=== PATIENT | female | born 1990 | race Caucasian/White ===

== ENCOUNTER 2016-07-22 14:08 | Inpatient (IN) | payer OTHER ==
[~2016-07-22] VITALS: Ht 165.1 cm; Wt 123.0 kg
[~2016-07-22 14:08] MED LIST: ABILIFY10 MG PO; ABILIFY15 MG PO; ACETAMINOPHEN-1 EAC1 PO; ADDERAL; ADDERALL XR 2020 MG PO; ADDERALL10 MG PO; ADDERALL20 MG PO; ALPRAZOLAM1 MG PO; AMBIEN10 MG PO; AMPHETAMINE SAL20 MG PO; CARBAMAZEPINE200 M1 PO; CELEXA10 MG PO; CLONAZEPAM1 MG PO; CLONAZEPAM2 MG PO; COGENTIN0.5 MG PO; DEXTROAMP-AMPHE20 MG PO; FENTANYL1 EAC1 TD; GABAPENTIN600 MG PO; GABAPENTIN800 MG PO; HALDOL10 MG PO; HALDOL5 MG PO; KLONOPIN0.5 M1 PO; KLONOPIN2 MG PO; LAMICTAL25 MG; LITHIUM CARBON300 MG PO; METHOCARBAMOL500 MG PO; MORPHINE SULFAT15 M1 PO; MOTRIN600 MG PO; MOTRIN800 MG PO; Motrin PO; NAPROSYN500 MG PO; NEURONTIN300 MG PO; NEURONTIN600 MG PO; NEURONTIN800 MG PO; NEXIUM20 MG PO; NEXIUM40 MG PO; NOHOMEMEDS; PRISTIQ100 MG PO; PRISTIQ50 MG PO; QUETIAPINE FUM100 MG PO; REMERON30 M2 PO; REMERON45 MG PO; RESTORIL15 MG PO; RISPERDAL0.5 MG PO; RISPERDAL1 MG PO; ROBAXIN500 MG PO; TEMAZEPAM15 MG PO; TOPAMAX25 MG PO; TOPIRAMATE25 MG PO; TRIPLE ANTIB28.35 GM TP; Tums PO; VOLTAREN75 MG PO; XANAX2 MG PO; ZOLPIDEM TARTRA10 MG PO; ZOLPIDEM TARTRAT5 MG PO
[2016-07-22 16:59] LABS: HEMATOCRIT 39.3 % (36.0-46.0); MCH 30.3 PG (29.0-34.0); MCHC 35.1 G/DL (30.0-36.0); MCV 86.4 FL (83-99); MEAN PLAT.VOLUME 9.9 uM^3 (9.5-12.4); PLATELET COUNT 205 K/uL (156-360); RBC DIS.WIDTH-CV 12.4 % (11.8-14.6); RBC DIS.WIDTH-SD 38.3 % (39-53); RED BLOOD COUNT 4.55 M/uL (3.80-5.20); WHITE BLOOD COUNT 9.8 K/uL (4.1-10.2)
[2016-07-22 17:15] LABS: CHLORIDE 107 mEq/L (99-109); POTASSIUM 4.4 mEq/L (3.7-5.4); SODIUM 140 mEq/L (136-147)
[2016-07-22 17:17] LABS: GLUCOSE 88 mg/dL (70-99)
[2016-07-22 17:18] LABS: ANION GAP 8 MEQ/L (2-14)
[2016-07-22 17:20] LABS: GFR ESTIMATE (CALCULATED) > 59 mL/min/; SERUM ETHYL ALCOHOL < 10 mg/dL
[2016-07-22 17:21] LABS: UREA NITROGEN (BUN) 10 mg/dL (9-23)
[2016-07-22] MEDS ORDERED: UNISOM50 MG PO (18:18)
[2016-07-22] MEDS ORDERED: TYLENOL EXTRA500 MG PO (18:19)
[2016-07-22] MEDS ORDERED: ADVIL200 MG PO (18:19)
[2016-07-22 18:55] VITALS: BP 127/62
[2016-07-22 18:56] VITALS: BP 127/67
[2016-07-23 07:26] VITALS: BP 148/77
[2016-07-23 15:22] VITALS: BP 128/58
[2016-07-24 07:43] VITALS: BP 124/68
[2016-07-24 15:25] VITALS: BP 150/75
[2016-07-25] MEDS ORDERED: GABAPENTIN400 MG PO (09:49)
== END 2016-07-25 11:27 | disposition home or self-care (01) | DRG 881 ==
LOC: EME 14:08 → 1WEST 17:41 → EDOF 17:41 → 1WEST 17:41
DX: F32.9 Major depressive disorder, single episode, unspecified (principal); R45.851 Suicidal ideations; Z68.42 Body mass index [BMI] 45.0-49.9, adult; F60.3 Borderline personality disorder; F12.20 Cannabis dependence, uncomplicated; Z91.19 Patient's noncompliance with other medical treatment and regimen; G89.29 Other chronic pain; F41.1 Generalized anxiety disorder; M54.9 Dorsalgia, unspecified; M25.519 Pain in unspecified shoulder; Z91.5 Personal history of self-harm; G43.909 Migraine, unspecified, not intractable, without status migrainosus; E66.9 Obesity, unspecified
CPT/HCPCS: 80048; 81003; 84702; 85027; 90839; 97166 GO; 99281; 99285; G0480

== ENCOUNTER 2016-09-02 20:27 | Emergency (ER) | payer OTHER ==
[~2016-09-02] VITALS: Ht 167.6 cm; Wt 122.2 kg
[~2016-09-02 20:27] MED LIST changes: +ADVIL200 MG PO; +GABAPENTIN400 MG PO; +TYLENOL EXTRA500 MG PO; +UNISOM50 MG PO
[2016-09-02 21:58] VITALS: BP 136/80
== END 2016-09-02 22:01 | disposition home or self-care (01) ==
LOC: EME 20:27
DX: F31.30 Bipolar disorder, current episode depressed, mild or moderate severity, unspecified (principal); J45.909 Unspecified asthma, uncomplicated; K21.9 Gastro-esophageal reflux disease without esophagitis; Q05.9 Spina bifida, unspecified; Z91.5 Personal history of self-harm
CPT/HCPCS: 90839; 99281; 99284

== ENCOUNTER 2016-11-14 21:18 | Inpatient (IN) | payer OTHER ==
[~2016-11-14] VITALS: Ht 165.1 cm; Wt 119.0 kg
[2016-11-14 21:49] LABS: AMPHETAMINE PRESUMPTIVE POSITIVE (500 ng/mL); BARBITURATES NEGATIVE (200 ng/mL); BENZODIAZEPINES PRESUMPTIVE POSITIVE (150 ng/mL); COCAINE NEGATIVE (150 ng/mL); INTERNAL CONTROLS VALID? YES; METHADONE NEGATIVE (200 ng/mL); METHAMPHETAMINE NEGATIVE (500 ng/mL); OPIATES (MORPHINE) NEGATIVE (100 ng/mL); OXYCODONE PRESUMPTIVE POSITIVE (100 ng/mL); PHENCYCLIDINE NEGATIVE (25 ng/mL); PROPOXYPHENE NEGATIVE (300 ng/mL); THC CANNABINOIDS PRESUMPTIVE POSITIVE (50 ng/mL); TRICYCLIC ANTIDEPRESSANTS NEGATIVE (300 ng/mL)
[2016-11-14 21:53] LABS: HEMATOCRIT 42.3 % (36.0-46.0); MCH 29.6 PG (29.0-34.0); MCHC 33.8 G/DL (30.0-36.0); MCV 87.6 FL (83-99); MEAN PLAT.VOLUME 9.4 uM^3 (9.5-12.4); PLATELET COUNT 226 K/uL (156-360); RBC DIS.WIDTH-CV 12.2 % (11.8-14.6); RED BLOOD COUNT 4.83 M/uL (3.80-5.20); WHITE BLOOD COUNT 10.9 K/uL (4.1-10.2)
[2016-11-14 21:58] LABS: ADD MEDTOX COMMENT Y
[2016-11-14 22:02] LABS: CHLORIDE 108 mEq/L (99-109); POTASSIUM 4.3 mEq/L (3.7-5.4); SODIUM 139 mEq/L (136-147)
[2016-11-14 22:04] LABS: GLUCOSE 94 mg/dL (70-99)
[2016-11-14 22:05] LABS: ANION GAP 9 MEQ/L (2-14)
[2016-11-14 22:07] LABS: GFR ESTIMATE (CALCULATED) > 59 mL/min/; SERUM ETHYL ALCOHOL < 10 mg/dL
[2016-11-14 22:08] LABS: UREA NITROGEN (BUN) 12 mg/dL (9-23)
[2016-11-14 22:14] LABS: BENZODIAZEPINES, URINE SCREEN POSITIVE (200 ng/mL)
[2016-11-14 22:15] LABS: QUANTITATIVE HCG < 4.0 MIU/ML
[2016-11-15 01:13] VITALS: BP 131/71
[2016-11-15 07:52] VITALS: BP 120/71
[2016-11-15 15:28] VITALS: BP 129/60
== END 2016-11-15 20:05 | disposition home or self-care (01) | DRG 883 ==
LOC: EME 21:18 → EDOF 23:56 → 1WEST 23:56
DX: F60.3 Borderline personality disorder (principal); F32.89 Other specified depressive episodes; F41.1 Generalized anxiety disorder; F12.10 Cannabis abuse, uncomplicated; Z56.0 Unemployment, unspecified; Z91.5 Personal history of self-harm; Z91.19 Patient's noncompliance with other medical treatment and regimen
CPT/HCPCS: 80048; 84702; 84999; 85027; 90839; 97166 GO; 99281; 99285; G0480; Q0177

== ENCOUNTER 2016-12-20 22:05 | Emergency (ER) | payer OTHER ==
[~2016-12-20] VITALS: Ht 165.1 cm; Wt 115.8 kg
[2016-12-20 23:19] LABS: CHLORIDE 106 mEq/L (99-109); POTASSIUM 4.1 mEq/L (3.7-5.4); SODIUM 141 mEq/L (136-147)
[2016-12-20 23:21] LABS: GLUCOSE 92 mg/dL (70-99)
[2016-12-20 23:22] LABS: ANION GAP 9 MEQ/L (2-14)
[2016-12-20 23:24] LABS: SERUM ETHYL ALCOHOL < 10 mg/dL
[2016-12-20 23:25] LABS: GFR ESTIMATE (CALCULATED) > 59 mL/min/
[2016-12-20 23:26] LABS: UREA NITROGEN (BUN) 13 mg/dL (9-23)
[2016-12-20 23:27] LABS: HEMATOCRIT 42.8 % (36.0-46.0); MCHC 33.9 G/DL (30.0-36.0); MCV 88.4 FL (83-99); RBC DIS.WIDTH-CV 12.2 % (11.8-14.6); RBC DIS.WIDTH-SD 39.5 % (39-53); RED BLOOD COUNT 4.84 M/uL (3.80-5.20); WHITE BLOOD COUNT 11.1 K/uL (4.1-10.2)
[2016-12-20 23:37] LABS: QUANTITATIVE HCG < 4.0 MIU/ML
[2016-12-20 23:42] LABS: AMPHETAMINE NEGATIVE (500 ng/mL); BARBITURATES NEGATIVE (200 ng/mL); BENZODIAZEPINES NEGATIVE (150 ng/mL); COCAINE NEGATIVE (150 ng/mL); METHADONE NEGATIVE (200 ng/mL); METHAMPHETAMINE NEGATIVE (500 ng/mL); OPIATES (MORPHINE) NEGATIVE (100 ng/mL); OXYCODONE NEGATIVE (100 ng/mL); PHENCYCLIDINE NEGATIVE (25 ng/mL); PROPOXYPHENE NEGATIVE (300 ng/mL); THC CANNABINOIDS PRESUMPTIVE POSITIVE (50 ng/mL); TRICYCLIC ANTIDEPRESSANTS NEGATIVE (300 ng/mL)
[2016-12-20 23:43] LABS: ADD MEDTOX COMMENT Y; INTERNAL CONTROLS VALID? YES
[2016-12-21 00:14] LABS: MEAN PLAT.VOLUME 10.7 uM^3 (9.5-12.4); PLAT.SUFFICIENCY ADEQUATE; PLATELET COUNT 167 K/uL (156-360)
[2016-12-21 00:38] VITALS: BP 120/89
== END 2016-12-21 00:46 | disposition home or self-care (01) ==
LOC: EME 22:05
PROVIDERS: Emergency Medicine
DX: F32.9 Major depressive disorder, single episode, unspecified (principal); K21.9 Gastro-esophageal reflux disease without esophagitis
CPT/HCPCS: 80048; 84702; 84999; 85027; 99281; 99284; G0480

== ENCOUNTER 2017-01-09 23:22 | Emergency (ER) | payer OTHER ==
[~2017-01-09] VITALS: Ht 165.1 cm; Wt 117.3 kg
[2017-01-10 00:20] LABS: CHLORIDE 107 mEq/L (99-109); POTASSIUM 3.9 mEq/L (3.7-5.4); SODIUM 140 mEq/L (136-147)
[2017-01-10 00:22] LABS: GLUCOSE 92 mg/dL (70-99)
[2017-01-10 00:24] LABS: ANION GAP 12 MEQ/L (2-14)
[2017-01-10 00:25] LABS: SERUM ETHYL ALCOHOL < 10 mg/dL
[2017-01-10 00:26] LABS: GFR ESTIMATE (CALCULATED) > 59 mL/min/
[2017-01-10 00:27] LABS: HEMATOCRIT 41.3 % (36.0-46.0); MCH 29.8 PG (29.0-34.0); MCHC 34.4 G/DL (30.0-36.0); MCV 86.8 FL (83-99); MEAN PLAT.VOLUME 9.6 uM^3 (9.5-12.4); PLATELET COUNT 246 K/uL (156-360); RBC DIS.WIDTH-CV 12.1 % (11.8-14.6); RBC DIS.WIDTH-SD 38.6 % (39-53); RED BLOOD COUNT 4.76 M/uL (3.80-5.20); WHITE BLOOD COUNT 15.1 K/uL (4.1-10.2)
[2017-01-10 00:28] LABS: UREA NITROGEN (BUN) 9 mg/dL (9-23)
[2017-01-10 00:29] LABS: SALICYLATE < 5.0 MG/DL (15-30)
[2017-01-10 00:35] LABS: QUANTITATIVE HCG < 4.0 MIU/ML
[2017-01-10 01:02] VITALS: BP 147/97
== END 2017-01-10 01:06 | disposition home or self-care (01) ==
LOC: EME 23:22
DX: F32.9 Major depressive disorder, single episode, unspecified (principal); G43.909 Migraine, unspecified, not intractable, without status migrainosus; K21.9 Gastro-esophageal reflux disease without esophagitis; F12.90 Cannabis use, unspecified, uncomplicated
CPT/HCPCS: 80048; 84702; 85027; 90839; 99281; 99285; G0480; J1630; J2405

== ENCOUNTER 2017-05-09 13:12 | Inpatient (IN) | payer OTHER ==
[~2017-05-09] VITALS: Ht 165.1 cm; Wt 112.3 kg
[2017-05-09 14:51] LABS: CHLORIDE 109 mEq/L (99-109); POTASSIUM 3.9 mEq/L (3.7-5.4); SODIUM 138 mEq/L (136-147)
[2017-05-09 14:53] LABS: GLUCOSE 107 mg/dL (70-99)
[2017-05-09 14:54] LABS: ANION GAP 6 MEQ/L (2-14)
[2017-05-09 14:56] LABS: SERUM ETHYL ALCOHOL < 10 mg/dL
[2017-05-09 14:57] LABS: GFR ESTIMATE (CALCULATED) > 59 mL/min/
[2017-05-09 14:58] LABS: UREA NITROGEN (BUN) 12 mg/dL (9-23)
[2017-05-09 15:00] LABS: SALICYLATE < 5.0 MG/DL (15-30)
[2017-05-09 15:02] LABS: ADD MEDTOX COMMENT Y; AMPHETAMINE NEGATIVE (500 ng/mL); BARBITURATES NEGATIVE (200 ng/mL); BENZODIAZEPINES PRESUMPTIVE POSITIVE (150 ng/mL); COCAINE NEGATIVE (150 ng/mL); INTERNAL CONTROLS VALID? YES; METHADONE NEGATIVE (200 ng/mL); METHAMPHETAMINE NEGATIVE (500 ng/mL); OPIATES (MORPHINE) NEGATIVE (100 ng/mL); OXYCODONE NEGATIVE (100 ng/mL); PHENCYCLIDINE NEGATIVE (25 ng/mL); PROPOXYPHENE NEGATIVE (300 ng/mL); THC CANNABINOIDS PRESUMPTIVE POSITIVE (50 ng/mL); TRICYCLIC ANTIDEPRESSANTS NEGATIVE (300 ng/mL)
[2017-05-09 15:06] LABS: QUANTITATIVE HCG < 4.0 MIU/ML
[2017-05-09 15:35] LABS: BENZODIAZEPINES, URINE SCREEN POSITIVE (200 ng/mL)
[2017-05-09] MEDS ORDERED: ORABASE-B7 GM MM (17:14)
[2017-05-09] MEDS ORDERED: ADVIL200 MG PO (17:14)
[2017-05-09] MEDS ORDERED: UNISOM SLEEP AI25 MG PO (17:15)
[2017-05-09 17:38] VITALS: BP 121/64
[2017-05-09 17:41] VITALS: BP 121/64
[2017-05-10 08:01] VITALS: BP 122/73
[2017-05-10 15:37] VITALS: BP 121/67
[2017-05-11 07:46] VITALS: BP 127/67
[2017-05-11 15:33] VITALS: BP 130/62
[2017-05-12 07:43] VITALS: BP 128/86
[2017-05-12 18:00] VITALS: BP 151/68
[2017-05-13 08:07] VITALS: BP 119/57
[2017-05-13 15:48] VITALS: BP 122/62
[2017-05-14 07:40] VITALS: BP 122/58
[2017-05-14] MEDS ORDERED: LAMICTAL25 MG PO (09:33)
[2017-05-14] MEDS ORDERED: GABAPENTIN300 MG PO (09:33)
[2017-05-14] MEDS ORDERED: RISPERDAL3 MG PO (09:33)
== END 2017-05-14 11:37 | disposition home or self-care (01) | DRG 881 ==
LOC: EME 13:12 → EDOF 16:13 → 1WEST 16:13 → ENRESERV 17:13 → 1WEST 17:33
PROVIDERS: Emergency Medicine
DX: F34.1 Dysthymic disorder (principal); F60.3 Borderline personality disorder; Z68.41 Body mass index [BMI] 40.0-44.9, adult; R45.851 Suicidal ideations; F51.04 Psychophysiologic insomnia; F12.90 Cannabis use, unspecified, uncomplicated; F31.9 Bipolar disorder, unspecified; F41.1 Generalized anxiety disorder; K08.89 Other specified disorders of teeth and supporting structures; K21.9 Gastro-esophageal reflux disease without esophagitis; Q05.9 Spina bifida, unspecified; Z91.5 Personal history of self-harm
CPT/HCPCS: 80048; 84702; 84999; 90839; 97150 GO; 99281; 99285; G0480; Q0177

== ENCOUNTER 2017-07-24 19:26 | Emergency (ER) | payer OTHER ==
[~2017-07-24] VITALS: Ht 165.1 cm; Wt 112.5 kg
[~2017-07-24 19:26] MED LIST changes: +GABAPENTIN300 MG PO; +LAMICTAL25 MG PO; +ORABASE-B7 GM MM; +RISPERDAL3 MG PO; +UNISOM SLEEP AI25 MG PO
[2017-07-24 20:03] LABS: HEMATOCRIT 39.5 % (36.0-46.0); HEMOGLOBIN 13.6 G/DL (11.9-15.5); MCH 30.2 PG (29.0-34.0); MCHC 34.4 G/DL (30.0-36.0); MCV 87.8 FL (83-99); PLATELET COUNT 196 K/uL (156-360); RBC DIS.WIDTH-CV 12.2 % (11.8-14.6); RBC DIS.WIDTH-SD 39.4 % (39-53); WHITE BLOOD COUNT 9.2 K/uL (4.1-10.2)
[2017-07-24 20:13] LABS: CHLORIDE 109 mEq/L (99-109); POTASSIUM 3.8 mEq/L (3.7-5.4); SODIUM 141 mEq/L (136-147)
[2017-07-24 20:14] LABS: GLUCOSE 92 mg/dL (70-99)
[2017-07-24 20:18] LABS: CREATININE 0.8 mg/dL (0.6-1.3); GFR ESTIMATE (CALCULATED) > 59 mL/min/; SERUM ETHYL ALCOHOL < 10 mg/dL
[2017-07-24 20:19] LABS: UREA NITROGEN (BUN) 8 mg/dL (9-23)
[2017-07-24 20:28] LABS: AMPHETAMINE NEGATIVE (500 ng/mL); BARBITURATES NEGATIVE (200 ng/mL); BENZODIAZEPINES PRESUMPTIVE POSITIVE (150 ng/mL); BUPRENORPHINE NEGATIVE (10 ng/mL); COCAINE NEGATIVE (150 ng/mL); METHADONE NEGATIVE (200 ng/mL); METHAMPHETAMINE NEGATIVE (500 ng/mL); OPIATES (MORPHINE) NEGATIVE (100 ng/mL); OXYCODONE NEGATIVE (100 ng/mL); PHENCYCLIDINE NEGATIVE (25 ng/mL); PROPOXYPHENE NEGATIVE (300 ng/mL); THC CANNABINOIDS PRESUMPTIVE POSITIVE (50 ng/mL); TRICYCLIC ANTIDEPRESSANTS NEGATIVE (300 ng/mL)
[2017-07-24 20:56] LABS: BENZODIAZEPINES, URINE SCREEN POSITIVE (200 ng/mL)
[2017-07-24 22:43] LABS: ACETAMINOPHEN (TYLENOL) < 10 mcg/mL (10-30)
[2017-07-25 13:04] VITALS: BP 113/68
== END 2017-07-25 13:06 | disposition home or self-care (01) ==
LOC: EME 19:26
PROVIDERS: Emergency Medicine Emergency Medical Services
DX: F32.9 Major depressive disorder, single episode, unspecified (principal); T39.1X2A Poisoning by 4-Aminophenol derivatives, intentional self-harm, initial encounter; T39.312A Poisoning by propionic acid derivatives, intentional self-harm, initial encounter; F34.1 Dysthymic disorder; F41.1 Generalized anxiety disorder; F60.3 Borderline personality disorder; Z91.5 Personal history of self-harm
CPT/HCPCS: 80048; 84999; 85027; 90839; 99281; 99285; G0480; J2060

== ENCOUNTER → 2017-08-28 | Outpatient (CLI) | payer OTHER | END | disposition home or self-care (01) | LOC: NUC 10:26 | DX: K81.1 Chronic cholecystitis (principal) | CPT/HCPCS: 78227; A9537; J2805 ==

== ENCOUNTER 2017-10-01 09:14 | Day surgery (SDC) | payer OTHER ==
[~2017-10-01] VITALS: Ht 165.1 cm; Wt 111.1 kg
[~2017-10-01 09:14] MED LIST changes: +DURAGESIC50 MCG TD; +IMPLANON IL
[2017-10-01 09:47] VITALS: BP 125/69
[2017-10-01] MEDS ORDERED: NORCO 5/3251 TABLET PO (12:02)
[2017-10-01 13:45] VITALS: BP 116/56
[2017-10-01 14:28] VITALS: BP 107/52
== END 2017-10-01 14:30 | disposition home or self-care (01) ==
LOC: SDC
PROC: 0FT44ZZ Resection of Gallbladder, Percutaneous Endoscopic Approach (ICD-10-PCS; principal; 2017-10-01)
DX: K80.10 Calculus of gallbladder with chronic cholecystitis without obstruction (principal); K66.0 Peritoneal adhesions (postprocedural) (postinfection); E66.01 Morbid (severe) obesity due to excess calories; Z68.41 Body mass index [BMI] 40.0-44.9, adult; F31.9 Bipolar disorder, unspecified; F90.9 Attention-deficit hyperactivity disorder, unspecified type; Z82.49 Family history of ischemic heart disease and other diseases of the circulatory system; Z83.3 Family history of diabetes mellitus; Z82.5 Family history of asthma and other chronic lower respiratory diseases; Z80.8 Family history of malignant neoplasm of other organs or systems; Z82.61 Family history of arthritis; Z81.8 Family history of other mental and behavioral disorders
CPT/HCPCS: 87641; 88304; J1100; J1170; J1885; J2250; J2405; J2550; Q0175; S0020; S0074

== ENCOUNTER 2017-11-21 13:58 | Inpatient (IN) | payer OTHER ==
[~2017-11-21] VITALS: Ht 165.1 cm; Wt 102.3 kg
[~2017-11-21 13:58] MED LIST changes: +NORCO 5/3251 TABLET PO
[2017-11-21 15:38] LABS: BASOPHIL (%) 0.4 % (0-1); EOSINOPHIL (%) 0.2 % (0-5); HEMATOCRIT 40.1 % (36.0-46.0); HEMOGLOBIN 13.9 G/DL (11.9-15.5); IMMATURE GRANULOCYTE (%) 0.3 % (0.0-0.7); LYMPHOCYTE (%) 30.3 % (15-42); LYMPHOCYTE COUNT 2.8 K/uL (1.0-2.8); MCH 30.5 PG (29.0-34.0); MCHC 34.7 G/DL (30.0-36.0); MCV 87.9 FL (83-99); MONOCYTE (%) 4.4 % (3-12); MONOCYTE COUNT 0.4 K/uL (0-0.8); NEUTROPHIL (%) 64.4 % (45-76); PLATELET COUNT 202 K/uL (156-360); RBC DIS.WIDTH-CV 12.3 % (11.8-14.6); RBC DIS.WIDTH-SD 39.8 % (39-53); RED BLOOD COUNT 4.56 M/uL (3.80-5.20); WHITE BLOOD COUNT 9.3 K/uL (4.1-10.2)
[2017-11-21 15:47] LABS: ALBUMIN 4.4 g/dL (3.2-4.8); CHLORIDE 107 mEq/L (99-109); POTASSIUM 4.1 mEq/L (3.7-5.4); SODIUM 143 mEq/L (136-147)
[2017-11-21 15:49] LABS: GLUCOSE 117 mg/dL (70-99); TOTAL PROTEIN 7.2 g/dL (6.4-8.3)
[2017-11-21 15:51] LABS: TOTAL BILIRUBIN 0.4 mg/dL (0.0-1.0)
[2017-11-21 15:52] LABS: SERUM ETHYL ALCOHOL < 10 mg/dL
[2017-11-21 15:53] LABS: ALKALINE PHOSPHATASE 82 IU/L (3-129); CREATININE 0.8 mg/dL (0.6-1.3); GFR ESTIMATE (CALCULATED) > 59 mL/min/
[2017-11-21 15:54] LABS: UREA NITROGEN (BUN) 8 mg/dL (9-23)
[2017-11-21 15:55] LABS: AST (GOT) 18 IU/L (2-34)
[2017-11-21 15:56] LABS: ALT (GPT) 24 IU/L (3-49)
[2017-11-21 16:01] LABS: QUANTITATIVE HCG < 4.0 MIU/ML
[2017-11-21 16:51] LABS: AMPHETAMINE NEGATIVE (500 ng/mL); BARBITURATES NEGATIVE (200 ng/mL); BENZODIAZEPINES NEGATIVE (150 ng/mL); BUPRENORPHINE NEGATIVE (10 ng/mL); COCAINE NEGATIVE (150 ng/mL); METHADONE NEGATIVE (200 ng/mL); METHAMPHETAMINE NEGATIVE (500 ng/mL); OPIATES (MORPHINE) NEGATIVE (100 ng/mL); OXYCODONE NEGATIVE (100 ng/mL); PHENCYCLIDINE NEGATIVE (25 ng/mL); PROPOXYPHENE NEGATIVE (300 ng/mL); THC CANNABINOIDS PRESUMPTIVE POSITIVE (50 ng/mL); TRICYCLIC ANTIDEPRESSANTS NEGATIVE (300 ng/mL)
[2017-11-21] MEDS ORDERED: ABILIFY15 MG PO (18:33)
[2017-11-21] MEDS ORDERED: LITHIUM CARBON300 MG PO (18:34)
[2017-11-21 18:57] VITALS: BP 121/58
[2017-11-21] MEDS ORDERED: IBUPROFEN600 MG PO (19:14)
[2017-11-22 09:33] VITALS: BP 118/75
[2017-11-22 17:02] VITALS: BP 129/59
[2017-11-23 09:34] VITALS: BP 120/57
[2017-11-23 16:43] VITALS: BP 139/69
[2017-11-24 08:04] VITALS: BP 114/66
[2017-11-25 07:45] VITALS: BP 118/59
[2017-11-25] MEDS ORDERED: INDERAL10 MG PO (10:55)
[2017-11-25] MEDS ORDERED: LITHIUM CARBON300 MG PO ×2 (10:55)
== END 2017-11-25 12:33 | disposition home or self-care (01) | DRG 883 ==
LOC: EME 13:58 → EDOF 16:10 → 1WEST 16:10 → ENRESERV 18:43 → 1WEST 18:44
PROVIDERS: Emergency Medicine
DX: F60.3 Borderline personality disorder (principal); F34.1 Dysthymic disorder; R45.851 Suicidal ideations; G25.71 Drug induced akathisia; T43.595A Adverse effect of other antipsychotics and neuroleptics, initial encounter; F12.10 Cannabis abuse, uncomplicated; F39 Unspecified mood [affective] disorder; F41.1 Generalized anxiety disorder; Z91.5 Personal history of self-harm; G43.909 Migraine, unspecified, not intractable, without status migrainosus; K21.9 Gastro-esophageal reflux disease without esophagitis; E66.9 Obesity, unspecified; Z68.38 Body mass index [BMI] 38.0-38.9, adult; F10.11 Alcohol abuse, in remission
CPT/HCPCS: 80053; 84702; 84999; 85025; 90839; 97150 GO; 97165 GO; 99281; 99285; G0480; Q0177

== ENCOUNTER 2017-12-10 15:01 | Emergency (ER) | payer OTHER ==
[~2017-12-10 15:01] MED LIST changes: +IBUPROFEN600 MG PO; +INDERAL10 MG PO
== END 2017-12-10 15:27 | disposition left against medical advice (07) ==
LOC: EME 15:01
DX: R45.89 Other symptoms and signs involving emotional state (principal); Z53.21 Procedure and treatment not carried out due to patient leaving prior to being seen by health care provider

== ENCOUNTER 2018-01-12 19:25 | Emergency (ER) | payer OTHER ==
[~2018-01-12] VITALS: Ht 165.1 cm; Wt 108.4 kg
[2018-01-12 21:51] LABS: APPEARANCE CLOUDY ((CLEAR)); BILIRUBIN NEGATIVE; BLOOD SMALL; COLOR AMBER ((YELLOW)); GLUCOSE (STRIP) NEGATIVE; KETONES 5; LEUKOCYTES MODERATE; NITRITE NEGATIVE; PROTEIN (STRIP) 30
[2018-01-12 22:04] LABS: BACTERIA 3+ /HPF; EPITHELIAL CELLS 3+ /HPF; MUCUS 2+ /LPF; RED BLOOD CELLS 0-5 /HPF (0-5)
[2018-01-12 22:16] VITALS: BP 133/79
[2018-01-12 22:17] LABS: AMPHETAMINE NEGATIVE (500 ng/mL); COCAINE NEGATIVE (150 ng/mL); METHAMPHETAMINE NEGATIVE (500 ng/mL); OPIATES (MORPHINE) NEGATIVE (100 ng/mL); PHENCYCLIDINE NEGATIVE (25 ng/mL); THC CANNABINOIDS PRESUMPTIVE POSITIVE (50 ng/mL)
[2018-01-12 22:18] LABS: BARBITURATES NEGATIVE (200 ng/mL); BENZODIAZEPINES NEGATIVE (150 ng/mL); BUPRENORPHINE NEGATIVE (10 ng/mL); METHADONE NEGATIVE (200 ng/mL); OXYCODONE NEGATIVE (100 ng/mL); PROPOXYPHENE NEGATIVE (300 ng/mL); TRICYCLIC ANTIDEPRESSANTS NEGATIVE (300 ng/mL)
== END 2018-01-12 22:17 | disposition home or self-care (01) ==
LOC: EME 19:25
PROVIDERS: Nurse Practitioner Family
DX: F32.9 Major depressive disorder, single episode, unspecified (principal); F41.9 Anxiety disorder, unspecified; F12.90 Cannabis use, unspecified, uncomplicated; F60.3 Borderline personality disorder; Z91.5 Personal history of self-harm
CPT/HCPCS: 80048; 81003; 84702; 84999; 85027; 90839; 99281; 99285

== ENCOUNTER 2018-02-11 19:15 | Inpatient (IN) | payer OTHER ==
[~2018-02-11] VITALS: Ht 165.1 cm; Wt 101.2 kg
[2018-02-11 20:21] LABS: APPEARANCE SL.HAZY ((CLEAR)); BILIRUBIN NEGATIVE; BLOOD SMALL; COLOR YELLOW ((YELLOW)); GLUCOSE (STRIP) NEGATIVE; KETONES NEGATIVE; LEUKOCYTES NEGATIVE; NITRITE NEGATIVE; PROTEIN (STRIP) NEGATIVE; SPECIFIC GRAVITY 1.027 (1.000-1.030)
[2018-02-11 20:25] LABS: BACTERIA RARE /HPF; EPITHELIAL CELLS 1+ /HPF; HYALINE CASTS 0-5 /LPF; MUCUS 1+ /LPF; RED BLOOD CELLS 0-5 /HPF (0-5); WHITE BLOOD CELLS 0-5 /HPF (0-5)
[2018-02-11 20:34] LABS: AMPHETAMINE PRESUMPTIVE POSITIVE (500 ng/mL); BARBITURATES NEGATIVE (200 ng/mL); BENZODIAZEPINES NEGATIVE (150 ng/mL); BUPRENORPHINE NEGATIVE (10 ng/mL); COCAINE NEGATIVE (150 ng/mL); METHADONE NEGATIVE (200 ng/mL); METHAMPHETAMINE NEGATIVE (500 ng/mL); OPIATES (MORPHINE) NEGATIVE (100 ng/mL); OXYCODONE NEGATIVE (100 ng/mL); PHENCYCLIDINE NEGATIVE (25 ng/mL); PROPOXYPHENE NEGATIVE (300 ng/mL); THC CANNABINOIDS PRESUMPTIVE POSITIVE (50 ng/mL); TRICYCLIC ANTIDEPRESSANTS NEGATIVE (300 ng/mL)
[2018-02-12 01:21] VITALS: BP 127/71
[2018-02-12] MEDS ORDERED: ADDERALL XR 2020 MG PO (01:25)
[2018-02-12] MEDS ORDERED: ADDERALL20 MG PO (01:27)
[2018-02-12] MEDS ORDERED: AMBIEN10 MG PO (01:28)
[2018-02-12] MEDS ORDERED: REXULTI3 MG PO (01:29)
[2018-02-12 08:05] VITALS: BP 139/65
== END 2018-02-12 11:02 | disposition home or self-care (01) | DRG 885 ==
LOC: EME 19:15 → 1WEST 23:03 → EDOF 23:03 → ENRESERV 02-12 01:08 → 1WEST 02-12 01:13
PROVIDERS: Emergency Medicine
DX: F31.32 Bipolar disorder, current episode depressed, moderate (principal); R45.851 Suicidal ideations; K21.9 Gastro-esophageal reflux disease without esophagitis; G43.909 Migraine, unspecified, not intractable, without status migrainosus; F41.9 Anxiety disorder, unspecified; F12.90 Cannabis use, unspecified, uncomplicated; I10 Essential (primary) hypertension; G89.29 Other chronic pain; M54.9 Dorsalgia, unspecified; Z91.5 Personal history of self-harm; Q05.9 Spina bifida, unspecified
CPT/HCPCS: 81003; 84999; 90839; 99281; 99285; J1630